=== PATIENT | male | born 1985 | race Two or more races ===

== ENCOUNTER 2018-12-09 16:26 | Emergency (ER) | payer SELFPAY | END 2018-12-09 17:35 | disposition home or self-care (01) | LOC: ERS 16:26 | DX: K02.9 Dental caries, unspecified (principal) | CPT/HCPCS: 99282 ==

== ENCOUNTER 2018-12-28 15:47 | Emergency (ER) | payer SELFPAY ==
[2018-12-28] MEDS ORDERED: Ketorolac Tromethamine 30 MG/ML VIAL ONE (16:01)
--- NOTE | 2018-12-28 17:34 | RAD ---
THREE VIEWS RIGHT ANKLE: 12/28/18 COMPARISON: None. HISTORY: Ankle injury. FINDINGS: There is lateral soft tissue swelling. The talar dome and ankle mortise appear intact. No displaced f racture or evidence of dislocation is seen. IMPRESSION: Lateral soft tissue swelling with no evidence for acute fracture or dislocation. POS: [facility]
== END 2018-12-28 16:43 | disposition home or self-care (01) ==
LOC: ERS 15:47
DX: S93.401A Sprain of unspecified ligament of right ankle, initial encounter (principal); X50.1XXA Overexertion from prolonged static or awkward postures, initial encounter; Y93.67 Activity, basketball; Y99.8 Other external cause status
CPT/HCPCS: J1885

== ENCOUNTER 2020-12-01 09:01 | Emergency (ER) | payer SELFPAY | END 2020-12-01 09:32 | disposition home or self-care (01) | LOC: ERS 09:01 | DX: Z20.822 Contact with and (suspected) exposure to COVID-19 (principal) | CPT/HCPCS: 99283 ==